=== PATIENT | female | born 1960 | race Caucasian/White ===

== ENCOUNTER 2017-03-03 23:08 | Emergency (ER) | payer OTHER, MEDICAID ==
[2017-03-03 23:09] VITALS: BMI 48.8
[2017-03-03 23:25] VITALS: BP 100/60; PULSE 82; RESP 20; TEMP 97.9; O2SAT 95
--- NOTE | 2017-03-03 23:48 | C.PDOC ---
History Of Present Illness 56 year old female who presents to the ER with a complaint of hives to the face , arms and chest after eating john tomato sauce that she has never had before. Denies difficulty breathing or difficulty swallowing. Time Seen by Provider: 03/03/17 23:43 Chief Complaint (Nursing): Allergic Reaction History Per: Patient History/Exam Limitations: no limitations Onset/Duration Of Symptoms: Hrs Current Symptoms Are (Timing): Still Present Context: Food Possible Cause: Food Associated Symptoms: Skin Rash. denies: Swelling, Dyspnea, Trouble Swallowing, Chest Pain Home/EMS Treatment: None Recent travel outside of the [place]: No Past Medical History Reviewed: Historical Data, Nursing Documentation, Vital Signs Vital Signs: Last Vital Signs Temp 97.9 F 03/03/17 23:24 Pulse 82 03/03/17 23:24 Resp 20 03/03/17 23:24 BP 100/60 03/03/17 23:24 Pulse Ox 95 03/04/17 00:26 - Medical History PMH: Gall Bladder Disease (GALL STONES) Surgical History: No Surg Hx Family History: States: Unknown Family Hx - Social History Hx Tobacco Use: No Hx Alcohol Use: No Hx Substance Use: No Review Of Systems Constitutional: Negative for: Fever, Chills Gastrointestinal: Negative for: Nausea, Vomiting, Diarrhea Skin: Positive for: Rash Physical Exam - Physical Exam Appears: Non-toxic, No Acute Distress, Other (Morbidly obese) Skin: Warm, Dry, Rash (resolving wheals to face, arms, and chest) Head: Atraumatic, Normacephalic Oral Mucosa: Moist Throat: Normal, No Other (Swelling) Neck: Normal, Supple Chest: Symmetrical, No Tenderness Cardiovascular: Rhythm Regular, No Murmur Respiratory: Normal Breath Sounds, No Stridor, No Wheezing Gastrointestinal/Abdominal: Soft, No Tenderness Neurological/Psych: Oriented x3, Normal Speech, Normal Cognition ED Course And Treatment O2 Sat by Pulse Oximetry: 95 (Room air) Pulse Ox Interpretation: Normal Progress Note: benadryl, pepcid, prednisone PO Reevaluation Time: 23:47 Reassessment Condition: Improved Medical Decision Making Medical Decision Making: new john pasta sauce may have provoked this mild allergic rxn. Disposition Doctor Will See Patient In The: Office Counseled Patient/Family Regarding: Studies Performed, Diagnosis - Disposition Referrals: Lorenzo Cormier DO [Doctor Osteopathy] - Disposition: HOME/ ROUTINE Disposition Time: 23:48 Condition: GOOD Additional Instructions: sigue Benadryl 25-50 mg cada 6 horas aviva necessario para las ronchas. Sigue con levy Medico aviva necessario. Instructions: Urticaria (ED) Forms: Serious [place] (Irish) Print Language: FIJIAN - Clinical Impression Clinical Impression: Allergic urticaria - Scribe Statement The provider has reviewed the documentation as recorded by the Scribjami Molina All medical record entries made by the Gregoryibe were at my direction and personally dictated by me. I have reviewed the chart and agree that the record accurately reflects my personal performance of the history, physical exam, medical decision making, and the department course for this patient. I have also personally directed, reviewed, and agree with the discharge instructions and disposition.
== END 2017-03-04 00:10 | disposition home or self-care (01) ==
LOC: C.ER 23:08
DX: L50.0 Allergic urticaria (principal)

== ENCOUNTER 2017-08-12 19:48 | Emergency (ER) | payer OTHER, MEDICAID ==
[2017-08-12 19:48] VITALS: BMI 48.8
[2017-08-12] MEDS ORDERED: Sodium Chloride 0.9% 1,000 ML IV ONE (20:45)
[2017-08-12 21:01] LABS: BASO # 0.2 K/uL (0.0-0.2); BASO % 1.3 % (0.0-2.0); EOS # 0.1 K/uL (0.0-0.7); EOS % 0.7 % (0.0-4.0); HEMOGLOBIN 17.1 g/dL (11.0-16.0); LYMPH # 7.1 K/uL (1.0-4.3); LYMPH % 60.1 % (20.0-40.0); MEAN CELL VOLUME 90.3 fL (81.0-99.0); MEAN CORPUSCULAR HEMOGLOBIN 30.1 pg (27.0-31.0); MEAN CORPUSCULAR HGB CONC 33.4 g/dL (33.0-37.0); MEAN PLATELET VOLUME 8.8 fL (7.2-11.7); MONO # 1.4 K/uL (0.0-0.8); MONO % 11.8 % (0.0-10.0); NEUT # 3.1 K/uL (1.8-7.0); NEUT % 26.1 % (50.0-75.0); NRBC % 0.4 % (0.0-2.0); PLATELET COUNT 375 K/uL (130-400); RBC 5.67 Mil/uL (3.80-5.20); RED CELL DISTRIBUTION WIDTH 13.7 % (11.5-14.5); WHITE BLOOD COUNT 11.8 K/uL (4.8-10.8)
[2017-08-12 21:13] LABS: ALB/GLOB RATIO 1.1 (1.0-2.1); ALBUMIN 3.8 g/dL (3.5-5.0); ALT/SGPT 28 U/L (9-52); AST/SGOT 27 U/L (14-36); BLOOD UREA NITROGEN 17 mg/dL (7-17); CALCIUM 8.9 mg/dl (8.6-10.4); GFR AFRICAN-AMERICAN > 60; GFR NON-AFRICAN AMERICAN > 60
[2017-08-12 21:42] LABS: SQUAMOUS EPITHIAL 17 /hpf (0-5); URINE BACTERIA RARE (<OCC); URINE BILIRUBIN NEGATIVE (NEGATIVE); URINE BLOOD NEGATIVE (NEGATIVE); URINE CLARITY Hazy (Clear); URINE COLOR Yellow (YELLOW); URINE GLUCOSE (UA) NORMAL (Normal); URINE NITRATE NEGATIVE (NEGATIVE); URINE PROTEIN 2+ mg/dL (NEGATIVE)
[2017-08-12 21:43] LABS: URINE LEUKOCYTE ESTERASE 1+ Leu/uL (Negative)
[2017-08-12 21:55] LABS: BARBITURATES, UR NEGATIVE (NEGATIVE); BENZODIAZEPINES, UR NEGATIVE (NEGATIVE); OPIATES, UR NEGATIVE (NEGATIVE); PHENCYCLIDINE, UR NEGATIVE (NEGATIVE)
--- NOTE | 2017-08-12 22:30 | C.PDOC ---
History Of Present Illness 57 year old female presents to the ER with a complaint of a mild rash to the upper chest and arms that began today. Patient reports today she was eating pizza and drank 5 beers, afterwards she reports she began having a pruritic rash to the upper chest and upper arms. She reports she went to the [facility] where she had a 1.5 tsp of benadryl. Patient was initially being treated in [facility] but became hypersomnolent. Patient reports she occasionally gets evaluated at outpatient clinics. Denies Hx of diabetes, chest pain, or SOB. Time Seen by Provider: 08/12/17 20:09 Chief Complaint (Nursing): Allergic Reaction History Per: Patient History/Exam Limitations: no limitations Onset/Duration Of Symptoms: Hrs Current Symptoms Are (Timing): Still Present Possible Cause: Food Associated Symptoms: Skin Rash, Itching Home/EMS Treatment: Benadryl Recent travel outside of the [place]: No Past Medical History Reviewed: Historical Data, Nursing Documentation, Vital Signs Vital Signs: Last Vital Signs Temp 97.7 F 08/12/17 22:47 Pulse 67 08/12/17 22:47 Resp 20 08/12/17 22:47 BP 107/69 08/12/17 22:47 Pulse Ox 95 08/12/17 22:47 - Medical History PMH: Gall Bladder Disease (GALL STONES) Surgical History: Cholecystectomy Family History: States: Unknown Family Hx - Social History Hx Tobacco Use: No Hx Alcohol Use: Yes Hx Substance Use: No - Immunization History Hx Tetanus Toxoid Vaccination: No Hx Influenza Vaccination: No Hx Pneumococcal Vaccination: No Review Of Systems Constitutional: Positive for: Other (Hypersomnolent). Negative for: Fever, Chills Cardiovascular: Negative for: Chest Pain Respiratory: Negative for: Shortness of Breath Gastrointestinal: Negative for: Nausea, Vomiting Skin: Positive for: Rash Physical Exam - Physical Exam Appears: Non-toxic, Other (Morbidly obese female, Hypersomnolent) Skin: Normal Color, Warm, Dry, No Rash Head: Atraumatic, Normacephalic Eye(s): bilateral: Normal Inspection Oral Mucosa: Moist Chest: Symmetrical, No Tenderness Cardiovascular: Rhythm Regular Respiratory: Normal Breath Sounds, No Rales, No Rhonchi, No Wheezing Gastrointestinal/Abdominal: Soft, No Tenderness Neurological/Psych: Oriented x3, Normal Speech ED Course And Treatment - Laboratory Results Result Diagrams: 08/12/17 20:53 08/12/17 20:53 ECG: Interpreted By Me ECG Rhythm: Sinus Rhythm ECG Interpretation: Normal Rate From EC O2 Sat by Pulse Oximetry: 96 Pulse Ox Interpretation: Normal - Radiology CXR: Interpreted by Me CXR Interpretation: Yes: No Acute Disease - CT Scan/US head Ct Other Rad Studies (CT/US): Interpreted By Me, Radiology Report Reviewed (neg) Progress Note: IV NS Reevaluation Time: 22:29 Reassessment Condition: Improved (more awake and aware.) Medical Decision Making Medical Decision Making: ate pizza and drank 5 beers today felt rash on upper chest and arms and benadryl from [place] 1.5 tsp with subsequent somnolence Incidental dx DM w/u neg. more awake w time. no sig alcohol issues. 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 Lleva la macina en levy proxima visita en la [facility] en 4-6 semanas. Come jose dieta diabetica. Prescriptions: Blood-Glucose Control, Normal [Meter-Check] 1 each MC BID #1 each Lancets/Blood Glucose Strips [Fora [id number] Strp-Lnct] 1 each MC BID #60 combo..pkg MetFORMIN [glucoPHAGE] 1,000 mg PO BID #60 tab Instructions: Diphenhydramine (By mouth), Urticaria (ED), Diabetes Mellitus Type 2 in Adults (ED), Adverse Drug Reaction (ED) Forms: [employer] (Amharic) Print Language: GREEK - Clinical Impression Clinical Impression: Allergic urticaria, Alcohol use - Scribe Statement The provider has reviewed the documentation as recorded by the Scribe Aman Molina All medical record entries made by the Scribe were at my direction and personally dictated by me. I have reviewed the chart and agree that the record accurately reflects my personal performance of the history, physical exam, medical decision making, and the department course for this patient. I have also personally directed, reviewed, and agree with the discharge instructions and disposition.
[2017-08-12 22:48] VITALS: BP 107/69; PULSE 67; RESP 20; TEMP 97.7
[2017-08-12 23:14] LABS: PLATELET ESTIMATE NORMAL (NORMAL)
--- NOTE | 2017-08-12 23:15 | CT ---
EXAM: CT Head Without Intravenous Contrast EXAM DATE/TIME: 08/12/2017 9:21 PM CLINICAL HISTORY: 57 years old, female; Signs and symptoms; Altered mental status/memory loss; Confusion or disorientation; Additional info: Change of ms, intox, ? injury TECHNIQUE: Axial computed tomography images of the head/brain without intravenous contrast. All CT scans at this facility use one or more dose reduction techniques, viz.: automated exposure control; ma/kV adjustment per patient size (including targeted exams where dose is matched to indication; i.e. head); or iterative reconstruction technique. Coronal and sagittal reformatted images were created and reviewed. COMPARISON: No relevant prior studies available. FINDINGS: No intracranial hemorrhage. No intracranial edema. No evidence of infarct. The sinuses and mastoid air cells are clear. IMPRESSION: No acute findings.
[2017-08-12 23:18] LABS: EOSINOPHIL 2 % (0-4); LYMPHOCYTE 32 % (20-40); MONOCYTE 8 % (0-10); NEUTROPHIL 22 % (50-75); REACTIVE LYMPHOCYTES 36 % (0-0); TOTAL CELLS COUNTED 100
[2017-08-12 23:19] LABS: ANISOCYTOSIS SLIGHT; GIANT PLATELETS PRESENT; HYPERSEGMENTATION PRESENT; LARGE PLATELETS PRESENT; POIKILOCYTOSIS SLIGHT; POLYCHROMIC SLIGHT; SMUDGE CELLS PRESENT; SPHEROCYTES SLIGHT
[2017-08-13 01:03] VITALS: O2SAT 96
--- NOTE | 2017-08-13 06:42 | RAD ---
Chest x-ray single frontal view History shortness of breath. Comparison: 08/12/2017 Findings: Diffuse increased interstitial lung markings. Right hilar prominence. Prominent bibasilar breast shadows. Correlation with lateral view may be helpful. Mild cardiomegaly. Degenerative changes in the spine and shoulders. Impression: Diffuse increased interstitial lung markings. Right hilar prominence. Prominent bibasilar breast shadows. Correlation with lateral view may be helpful. Mild cardiomegaly.
--- NOTE | 2017-08-14 22:49 | CARD ---
APPROVED REPORT EKG Measurement Heart [id number] <Conclusion> Normal sinus rhythm ST elevation, consider early repolarization. Nonspecific ST and T wave abnormality Abnormal ECG
== END 2017-08-12 22:48 | disposition home or self-care (01) ==
LOC: C.ER 19:48
DX: L50.0 Allergic urticaria (principal); Z72.89 Other problems related to lifestyle
CPT/HCPCS: 70450; 71045; 80053; 80320; 80324; 80345; 80346; 80349; 80353; 80358; 80361; 81001; 83880; 83992; 84484; 85025; 96360; 99285; J7040

== ENCOUNTER 2018-04-17 12:41 | Emergency (ER) | payer MEDICAID ==
[2018-04-17 13:01] VITALS: BMI 54.6
[2018-04-17 13:02] VITALS: BP 172/94; PULSE 78; RESP 18; TEMP 98.2; O2SAT 97
--- NOTE | 2018-04-17 13:36 | C.PDOC ---
History Of Present Illness 58-year-old female complains of itchy rash to arms and legs starting today while cleaning her home. She thinks she is having allergic reaction, but states she did not use any new products. Denies SOB, difficulty swallowing. Time Seen by Provider: 04/17/18 13:03 Chief Complaint (Nursing): Allergic Reaction History Per: Patient History/Exam Limitations: no limitations Onset/Duration Of Symptoms: Hrs Current Symptoms Are (Timing): Still Present Possible Cause: Unknown Associated Symptoms: Skin Rash Home/EMS Treatment: None Additional History Per: Patient Past Medical History Reviewed: Historical Data, Nursing Documentation, Vital Signs Vital Signs: Last Vital Signs Temp 98.2 F 04/17/18 13:00 Pulse 78 04/17/18 13:00 Resp 18 04/17/18 13:00 BP 172/94 H 04/17/18 13:00 Pulse Ox 97 04/17/18 13:00 - Medical History PMH: Gall Bladder Disease (GALL STONES) Surgical History: Cholecystectomy Family History: States: Unknown Family Hx - Social History Hx Tobacco Use: No Hx Alcohol Use: No Hx Substance Use: No - Immunization History Hx Tetanus Toxoid Vaccination: No Hx Influenza Vaccination: No Hx Pneumococcal Vaccination: No Review Of Systems Respiratory: Negative for: Shortness of Breath Skin: Positive for: Rash (itchy, to arms and legs ) Physical Exam - Physical Exam Appears: Non-toxic, No Acute Distress Skin: Warm, Dry, Other (urticaria to all extremities, no face involvement) Head: Atraumatic, Normacephalic Eye(s): bilateral: Normal Inspection Oral Mucosa: Moist Neck: Supple Chest: Symmetrical, No Deformity, No Tenderness Cardiovascular: Rhythm Regular, No Murmur Respiratory: Normal Breath Sounds, No Rales, No Rhonchi, No Wheezing Extremity: Normal ROM Neurological/Psych: Oriented x3, Normal Speech, Normal Cognition ED Course And Treatment O2 Sat by Pulse Oximetry: 97 (on RA) Pulse Ox Interpretation: Normal Medical Decision Making Medical Decision Making: Impression: Urticaria Plan: * Prednisone * Pepcid * Benadryl Progress: Patient is resting comfortably, tolerating PO, has no shortness of breath, has no intra-oral swelling, no stridor. Patient notes that pruritus has improved. Patient was advised to avoid potential allergens, and to follow up with physician in 1-2 days. 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 - Scribe Statement The provider has reviewed the documentation as recorded by the Scribe (Leah Leon) All medical record entries made by the Scribe were at my direction and personally dictated by me. I have reviewed the chart and agree that the record accurately reflects my personal performance of the history, physical exam, medical decision making, and the department course for this patient. I have also personally directed, reviewed, and agree with the discharge instructions and disposition.
== END 2018-04-17 14:05 | disposition home or self-care (01) ==
LOC: C.ER 12:41
DX: L50.9 Urticaria, unspecified (principal)

== ENCOUNTER 2018-04-24 11:30 | Emergency (ER) | payer MEDICAID ==
[2018-04-24 11:30] VITALS: BMI 54.6
[2018-04-24 11:56] VITALS: PULSE 90; RESP 18; TEMP 97.6; O2SAT 95
--- NOTE | 2018-04-24 12:53 | C.PDOC ---
History Of Present Illness 58 y/o female presents to ED with c/o redness and itching to arms and back consistent with allergic reaction. Patient states she was seen at ED 1 week ago given Prednisone and Benadryl with mild improvement. Patient denies fever, chills, chest pain, sob, nausea, vomiting or any other complaints at this time. Time Seen by Provider: 04/24/18 12:26 Chief Complaint (Nursing): Abnormal Skin Integrity History Per: Patient History/Exam Limitations: no limitations Onset/Duration Of Symptoms: Days Current Symptoms Are (Timing): Still Present Past Medical History Reviewed: Historical Data, Nursing Documentation, Vital Signs Vital Signs: Last Vital Signs Temp 97.6 F 04/24/18 11:53 Pulse 90 04/24/18 11:53 Resp 18 04/24/18 11:53 BP Pulse Ox 95 04/24/18 11:53 - Medical History PMH: Gall Bladder Disease (GALL STONES) Surgical History: Cholecystectomy Family History: States: No Known Family Hx - Social History Hx Tobacco Use: No Hx Alcohol Use: No Hx Substance Use: No - Immunization History Hx Tetanus Toxoid Vaccination: No Hx Influenza Vaccination: No Hx Pneumococcal Vaccination: No Review Of Systems Except As Marked, All Systems Reviewed And Found Negative. Skin: Positive for: Rash Physical Exam - Physical Exam Appears: Non-toxic, No Acute Distress Skin: Warm, Dry, Rash (urticaria hives to arms and back) Head: Atraumatic, Normacephalic Eye(s): bilateral: Normal Inspection Oral Mucosa: Moist Tongue: No Swelling Lips: Normal Appearing, No Swelling Throat: Normal, No Erythema, No Exudate Cardiovascular: Rhythm Regular Respiratory: Normal Breath Sounds, No Rales, No Rhonchi, No Wheezing Gastrointestinal/Abdominal: Soft, No Tenderness, No Guarding, No Rebound Neurological/Psych: Oriented x3, Normal Speech, Normal Cognition ED Course And Treatment O2 Sat by Pulse Oximetry: 95 (RA) Pulse Ox Interpretation: Normal Medical Decision Making Medical Decision Making: Assessment: Allergic reaction Disposition - Disposition Disposition: HOME/ ROUTINE Disposition Time: 13:56 Condition: STABLE Additional Instructions: follow up with your doctor or medical clinic within 2 days call to make an appointment take medications as prescribed return to ER if symptoms worsens or progress Prescriptions: predniSONE [predniSONE Tab] 50 mg PO DAILY #4 tab Instructions: Hives Forms: Gen Discharge Inst Kosovan, [facility] (Kosovan), Work Excuse Print Language: JAPANESE - Clinical Impression Clinical Impression: Allergic reaction - Scribe Statement The provider has reviewed the documentation as recorded by the Gregoryibjami Rivera All medical record entries made by the Gregoryibe were at my direction and personally dictated by me. I have reviewed the chart and agree that the record accurately reflects my personal performance of the history, physical exam, med ical decision making, and the department course for this patient. I have also personally directed, reviewed, and agree with the discharge instructions and disposition.
== END 2018-04-24 14:01 | disposition home or self-care (01) ==
LOC: C.ER 11:30
DX: T78.40XA Allergy, unspecified, initial encounter (principal)